=== PATIENT | female | born 1990 | race Caucasian/White ===

== ENCOUNTER 2016-04-10 19:20 | Inpatient (IN) | payer OTHER ==
[~2016-04-10] VITALS: Ht 162.6 cm; Wt 42.8 kg
[2016-04-10 19:59] LABS: HEMATOCRIT 39.1 % (36.0-46.0); MCH 31.6 PG (29.0-34.0); MCV 92.9 FL (83-99); PLATELET COUNT 203 K/uL (156-360); RBC DIS.WIDTH-CV 12.8 % (11.8-14.6); RBC DIS.WIDTH-SD 41.9 % (39-53); RED BLOOD COUNT 4.21 M/uL (3.80-5.20); WHITE BLOOD COUNT 10.3 K/uL (4.1-10.2)
[2016-04-10 20:08] LABS: CHLORIDE 107 mEq/L (99-109); POTASSIUM 3.8 mEq/L (3.7-5.4); SODIUM 141 mEq/L (136-147)
[2016-04-10 20:10] LABS: GLUCOSE 100 mg/dL (70-99)
[2016-04-10 20:13] LABS: SERUM ETHYL ALCOHOL < 10 mg/dL
[2016-04-10 20:15] LABS: UREA NITROGEN (BUN) 20 mg/dL (9-23)
[2016-04-10 20:22] LABS: QUANTITATIVE HCG < 4.0 MIU/ML
[2016-04-10 20:27] LABS: GFR ESTIMATE (CALCULATED) > 59 mL/min/
[2016-04-10 20:54] LABS: SAMPLE HEMOLYSIS CHECK 0; SAMPLE ICTERIC CHECK 0; SAMPLE LIPEMIA CHECK 0
[2016-04-10 21:22] LABS: ADD MIUA? YES; BILIRUBIN NEGATIVE; BLOOD NEGATIVE; COLOR YELLOW ((YELLOW)); GLUCOSE (STRIP) NEGATIVE; KETONES 20; LEUKOCYTES NEGATIVE; NITRITE NEGATIVE; PROTEIN (STRIP) NEGATIVE; SPECIFIC GRAVITY 1.013 (1.000-1.030); UROBILINOGEN 0.2 MG/DL (0.2-1.0)
[2016-04-10 21:23] LABS: CREATINE KINASE 297 IU/L (1-294)
[2016-04-10 21:39] LABS: AMPHETAMINE NEGATIVE (500 ng/mL); BARBITURATES NEGATIVE (200 ng/mL); BENZODIAZEPINES NEGATIVE (150 ng/mL); COCAINE NEGATIVE (150 ng/mL); INTERNAL CONTROLS VALID? YES; METHADONE NEGATIVE (200 ng/mL); METHAMPHETAMINE NEGATIVE (500 ng/mL); OPIATES (MORPHINE) NEGATIVE (100 ng/mL); OXYCODONE NEGATIVE (100 ng/mL); PHENCYCLIDINE NEGATIVE (25 ng/mL); PROPOXYPHENE NEGATIVE (300 ng/mL); THC CANNABINOIDS NEGATIVE (50 ng/mL); TRICYCLIC ANTIDEPRESSANTS NEGATIVE (300 ng/mL)
[2016-04-10 21:47] LABS: BACTERIA NONE SEEN /HPF; BUDDING YEAST 3+; EPITHELIAL CELLS RARE /HPF; MUCUS NONE SEEN /LPF; RED BLOOD CELLS 0-5 /HPF (0-5); UCUL ADDED? NO; UNCLASSIFIED CRYSTALS 3+ /HPF; WHITE BLOOD CELLS 0-5 /HPF (0-5)
[2016-04-10 21:49] LABS: CASTS NONE SEEN /LPF; CRYSTALS NONE SEEN
[2016-04-10] MEDS ORDERED: MIRALAX17 GM PO (22:49)
[2016-04-11 15:28] VITALS: BP 88/56
[2016-04-11 16:17] LABS: ALKALINE PHOSPHATASE 30 IU/L (3-129); DIRECT BILIRUBIN 0.2 mg/dL (0.0-0.3); TOTAL BILIRUBIN 0.8 MG/DL (0.0-1.0)
[2016-04-11 17:52] VITALS: BP 106/67
[2016-04-12 07:39] VITALS: BP 111/68
[2016-04-12 09:53] LABS: ANION GAP 12 MEQ/L (2-14); CHLORIDE 103 MEQ/L (99-109); GFR ESTIMATE (CALCULATED) > 59 mL/min/; POTASSIUM 3.4 MEQ/L (3.7-5.4); SAMPLE HEMOLYSIS CHECK 0; SAMPLE ICTERIC CHECK 0; SAMPLE LIPEMIA CHECK 0; SODIUM 142 MEQ/L (136-147); UREA NITROGEN (BUN) 21 mg/dL (9-23)
[2016-04-12 09:56] LABS: GLUCOSE 70 mg/dL (70-99)
[2016-04-12 15:50] VITALS: BP 134/61
[2016-04-13 07:51] VITALS: BP 110/71
== END 2016-04-13 12:42 | disposition home or self-care (01) | DRG 881 ==
LOC: EME 19:20 → EDOF 23:03 → 1WEST 23:03
PROVIDERS: Emergency Medicine; Psychiatry & Neurology Psychiatry
DX: F34.1 Dysthymic disorder (principal); F29 Unspecified psychosis not due to a substance or known physiological condition; F50.00 Anorexia nervosa, unspecified; E44.0 Moderate protein-calorie malnutrition; Z68.1 Body mass index [BMI] 19.9 or less, adult; Z91.14 Patient's other noncompliance with medication regimen
CPT/HCPCS: 70450; 80048; 80076; 81003; 82140; 82550; 82550 91; 84443; 84702; 85027; 90837; 97167 GO; 99281; 99284; G0480; J2060; Q0177